=== PATIENT | male | born 1950 | race Caucasian/White ===

== ENCOUNTER 2018-02-27 21:44 | Inpatient (IN) | payer OTHER, BC ==
[~2018-02-27] VITALS: Ht 180.3 cm; Wt 101.2 kg
[~2018-02-27 21:44] MED LIST: ASPIR 8181 M1 PO; CYANOCOBALAM1000 MCG PO; CYMBALTA60 MG PO; LABETALOL HCL100 MG PO; LITE COAT ASPI325 M1 PO; METFORMIN HCL500 MG PO; METOPROLOL TART25 MG PO; NIACIN500 M1 PO; OMEPRAZOLE20 MG PO; OSTEO BI-FLEX1 EAC1 PO; PERCOCET 7.51 TABLET PO; TRAMADOL HCL50 MG PO; TRICOR145 MG PO; VALIUM5 MG PO; VIAGRA100 MG PO; VITAMIN D31000 UNI2 PO
[2018-02-28 06:09] VITALS: BP 186/105
[2018-02-28 10:08] LABS: CREATINE KINASE 273 IU/L (1-294); TOTAL CK 273 IU/L (1-294)
[2018-02-28 10:41] LABS: CK-MB 3.1 ng/mL (0.0-4.9); CKMB RELATIVE INDEX 1.1 (0.0-3.9)
[2018-02-28] MEDS ORDERED: HYDROCODON-ACE1 EAC7 PO (11:56)
[2018-02-28 15:18] VITALS: BP 151/71
[2018-02-28 21:32] VITALS: BP 169/87
[2018-02-28 22:27] VITALS: BP 159/73
[2018-03-01 05:00] VITALS: BP 132/66
[2018-03-01 05:19] LABS: HEMATOCRIT 41.3 % (38.0-50.0); HEMOGLOBIN 13.6 G/DL (12.5-16.6); MCH 28.3 PG (29.0-34.0); MCHC 32.9 G/DL (30.0-36.0); MCV 85.9 FL (86-99); PLATELET COUNT 160 K/uL (156-360); RBC DIS.WIDTH-CV 13.1 % (11.8-14.6); RBC DIS.WIDTH-SD 41.1 % (39-53); RED BLOOD COUNT 4.81 M/uL (4.00-5.50); WHITE BLOOD COUNT 6.6 K/uL (4.1-10.2)
[2018-03-01 05:48] LABS: CHLORIDE 102 MEQ/L (99-109); CREATINE KINASE 324 IU/L (1-294); CREATININE 1.1 MG/DL (0.6-1.3); GFR ESTIMATE (CALCULATED) > 59 mL/min/ (58.99-99999); GLUCOSE 140 mg/dL (70-99); POTASSIUM 4.4 MEQ/L (3.7-5.4); SODIUM 138 MEQ/L (136-147); TOTAL CK 324 IU/L (1-294); UREA NITROGEN (BUN) 11 mg/dL (9-23)
[2018-03-01 06:30] LABS: CKMB RELATIVE INDEX 0.9 (0.0-3.9)
[2018-03-01 07:12] VITALS: BP 163/87
== END 2018-03-01 11:16 | disposition home or self-care (01) | DRG 269 ==
LOC: ENRESERV 21:44 → 2SOUTH 02-28 05:36 → ENRESERV 02-28 10:19 → 2SOUTH 02-28 11:09 → ENRESERV 02-28 13:11 → 4EAST 02-28 13:41 → 2SOUTH 02-28 14:14 → 4EAST 03-01 11:16
PROVIDERS: Surgery
PROC: 04V03D6 (ICD-10-PCS; principal; 2018-02-28)
DX: I71.4 Abdominal aortic aneurysm, without rupture (principal); I10 Essential (primary) hypertension; E11.9 Type 2 diabetes mellitus without complications; G89.29 Other chronic pain; M54.9 Dorsalgia, unspecified; K21.9 Gastro-esophageal reflux disease without esophagitis; M19.90 Unspecified osteoarthritis, unspecified site; F41.9 Anxiety disorder, unspecified; Z86.73 Personal history of transient ischemic attack (TIA), and cerebral infarction without residual deficits; F17.210 Nicotine dependence, cigarettes, uncomplicated
CPT/HCPCS: 80048; 82550; 82553; 82948; 85027; 86850; 86900; 86901; 93005; 94640; C1725; C1769; C1894; J0360; J0690; J1170; J1644; J1650; J1815; J2250; J2405; J2710; J2720; J7120; J7643